=== PATIENT | male | born 1960 | race Caucasian/White ===

== ENCOUNTER → 2016-03-29 | Outpatient (REF) | payer BC ==
[2016-03-29 12:45] LABS: ALBUMIN 4.8 g/dL (3.4-5.0); TOTAL PROTEIN 8.1 g/dL (6.4-8.5)
== END ==
LOC: LAB 11:52
PROVIDERS: ATTEND Nurse Practitioner Family
DX: R79.89 Other specified abnormal findings of blood chemistry (principal)
CPT/HCPCS: 80076; 86803

== ENCOUNTER → 2016-04-04 | Outpatient (CLI) | payer BC | LOC: RAD 07:26 | PROVIDERS: ATTEND Nurse Practitioner Family | DX: R79.89 Other specified abnormal findings of blood chemistry (principal); K76.0 Fatty (change of) liver, not elsewhere classified | CPT/HCPCS: 76705 ==

== ENCOUNTER → 2016-04-09 | Outpatient (REF) | payer BC | LOC: LAB 17:17 | PROVIDERS: ATTEND Family Medicine | DX: E11.9 Type 2 diabetes mellitus without complications (principal) | CPT/HCPCS: 82565; 84520 ==

== ENCOUNTER → 2016-04-12 | Outpatient (CLI) | payer BC | LOC: RAD 07:45 | PROVIDERS: ATTEND Nurse Practitioner Family | DX: K76.89 Other specified diseases of liver (principal); K76.0 Fatty (change of) liver, not elsewhere classified; K42.9 Umbilical hernia without obstruction or gangrene | CPT/HCPCS: 74170; Q9967 ==

== ENCOUNTER → 2016-04-30 | Outpatient (REF) | payer BC ==
[2016-04-30 16:52] LABS: ALBUMIN 4.7 g/dL (3.4-5.0); TOTAL PROTEIN 7.6 g/dL (6.4-8.5)
[2016-04-30 23:49] LABS: HEPATITIS A ANTIBODY IGM Negative; HEPATITIS B CORE ABY IGM Negative; HEPATITIS B SURFACE ANTIGEN C Negative
== END ==
LOC: LAB 15:25
PROVIDERS: ATTEND Nurse Practitioner Family
DX: K76.0 Fatty (change of) liver, not elsewhere classified (principal)
CPT/HCPCS: 80074; 80076

== ENCOUNTER → 2016-05-17 | Outpatient (REF) | payer BC ==
[2016-05-17 16:57] LABS: BILIRUBIN,URINE Negative (Negative); CLARITY,URINE Clear; COLOR,URINE Yellow; GLUCOSE, URINE (UA) Negative (Negative); LEUKOCYTE ESTERASE, URINE Negative (Negative); UROBILINOGEN,URINE 0.2 mg/dL (0.2-1.0)
== END ==
LOC: LAB 15:58
PROVIDERS: ATTEND Nurse Practitioner Family
DX: E11.9 Type 2 diabetes mellitus without complications (principal)
CPT/HCPCS: 81003; 82043; 83036

== ENCOUNTER 2016-06-12 06:22 | Day surgery (SDC) | payer BC ==
[~2016-06-12] VITALS: Ht 165.1 cm; Wt 85.5 kg
[~2016-06-12 06:22] MED LIST: AML5T PO; ASPI-860 PO; LACTATED RINGERS 1,000 ML IV SCH; LSNP10T PO; METF500T4 PO; OMEG500C PO; SODIUM CHLORIDE FLUSH 3 ML SYR IV PRN
--- OUTSIDE RECORDS SUMMARY | 2016-06-12 06:27 | XMS REPORT | Continuity of Care Document ---
Author Author [facility] Address Unknown Phone Unavailable Allergies Medications Problems Date Dx Coded Attending Type Code Diagnosis Diagnosed By 05/28/2012 Ot 787.02 05/28/2014 Ot 571.8 05/28/2014 Ot 574.20 06/17/2014 WILGERS, LEONARDO L SHAFT HEADMAN Ot 272.4 06/17/2014 WILGERS, LEONARDO L SHAFT HEADMAN Ot 401.9 06/17/2014 WILGERS, LEONARDO L SHAFT HEADMAN Ot 790.29 09/14/2014 WILGERS, LEONARDO L SHAFT HEADMAN Ot 790.29 09/14/2014 WILGERS, LEONARDO L SHAFT HEADMAN Ot 790.4 09/14/2014 WILGERS, LEONARDO L SHAFT HEADMAN Ot 790.29 09/14/2014 WILGERS, LEONARDO L SHAFT HEADMAN Ot 790.4 09/23/2014 WILGERS, LEONARDO L SHAFT HEADMAN Ot 790.29 09/23/2014 WILGERS, LEONARDO L SHAFT HEADMAN Ot 790.4 09/27/2014 WILGERS, LEONARDO L SHAFT HEADMAN Ot 272.4 09/27/2014 WILGERS, LEONARDO L SHAFT HEADMAN Ot 401.9 09/27/2014 WILGERS, LEONARDO L SHAFT HEADMAN Ot 790.29 09/27/2014 WILGERS, LEONARDO L SHAFT HEADMAN Ot 790.29 09/27/2014 WILGERS, LEONARDO L SHAFT HEADMAN Ot 790.4 02/05/2016 WILGERS, LEONARDO L SHAFT HEADMAN Ot 272.4 HYPERLIPIDEMIA NEC/NOS 02/05/2016 WILGERS, LEONARDO L SHAFT HEADMAN Ot 401.9 HYPERTENSION NOS 02/05/2016 WILGERS, LEONARDO L SHAFT HEADMAN Ot 790.29 OTHER ABNORMAL GLUCOSE 02/05/2016 WILGERS, LEONARDO L SHAFT HEADMAN Ot 790.29 OTHER ABNORMAL GLUCOSE 02/05/2016 WILGERS, LEONARDO L SHAFT HEADMAN Ot 790.4 ELEV TRANSAMINASE/LDH 02/08/2016 RALPH BETH, ABIGAIL Ordonez Ot E78.2 MIXED HYPERLIPIDEMIA 02/08/2016 ABIGAIL ROSAS MD Ot I10 ESSENTIAL (PRIMARY) HYPERTENSION 02/08/2016 RALPH BETH, ABIGAIL Ordonez Ot R73.03 PREDIABETES 02/27/2016 RALPH BETH, ABIGAIL Ordonez Ot E78.2 MIXED HYPERLIPIDEMIA 02/27/2016 RALPH BETH, ABIGAIL Ordonez Ot I10 ESSENTIAL (PRIMARY) HYPERTENSION 02/27/2016 RALPH BETH, ABIGAIL Ordonez Ot R73.03 PREDIABETES 03/29/2016 WILGERS, LEONARDO L SHAFT HEADMAN Ot 272.4 HYPERLIPIDEMIA NEC/NOS 03/29/2016 WILGERS, LEONARDO L SHAFT HEADMAN Ot 401.9 HYPERTENSION NOS 03/29/2016 WILGERS, LEONARDO L SHAFT HEADMAN Ot 790.29 OTHER ABNORMAL GLUCOSE 03/29/2016 WILGERS, LEONARDO L SHAFT HEADMAN Ot 790.29 OTHER ABNORMAL GLUCOSE 03/29/2016 WILGERS, LEONARDO L SHAFT HEADMAN Ot 790.4 ELEV TRANSAMINASE/LDH 03/29/2016 RALPH BETH, ABIGAIL Ordonez Ot E78.2 MIXED HYPERLIPIDEMIA 03/29/2016 RALPH BETH, ABIGAIL Ordonez Ot I10 ESSENTIAL (PRIMARY) HYPERTENSION 03/29/2016 RALPH BETH, ABIGAIL Ordonez Ot R73.03 PREDIABETES 04/05/2016 WILGERS, LEONARDO L SHAFT HEADMAN Ot R79.89 OTHER SPECIFIED ABNORMAL FINDINGS OF BLO 04/08/2016 WILGERS, LEONARDO L SHAFT HEADMAN Ot K76.0 FATTY (CHANGE OF) LIVER, NOT ELSEWHERE C 04/08/2016 WILGERS, LEONARDO L SHAFT HEADMAN Ot R79.89 OTHER SPECIFIED ABNORMAL FINDINGS OF BLO 04/12/2016 WILGERS, LEONARDO L SHAFT HEADMAN Ot K76.0 FATTY (CHANGE OF) LIVER, NOT ELSEWHERE C 04/12/2016 WILGERS, LEONARDO L SHAFT HEADMAN Ot R79.89 OTHER SPECIFIED ABNORMAL FINDINGS OF BLO 04/16/2016 AYDEE KURTZ MD Ot E11.9 TYPE 2 DIABETES MELLITUS WITHOUT COMPLIC 04/18/2016 WILGERS, LEONARDO L SHAFT HEADMAN Ot R79.89 OTHER SPECIFIED ABNORMAL FINDINGS OF BLO 04/18/2016 WILGERS, LEONARDO L SHAFT HEADMAN Ot K76.0 FATTY (CHANGE OF) LIVER, NOT ELSEWHERE C 04/18/2016 WILGERS, LEONARDO L SHAFT HEADMAN Ot R79.89 OTHER SPECIFIED ABNORMAL FINDINGS OF BLO 04/19/2016 WILGERS, LEONARDO L SHAFT HEADMAN Ot K42.9 UMBILICAL HERNIA WITHOUT OBSTRUCTION OR 04/19/2016 WILGERS, LEONARDO L SHAFT HEADMAN Ot K76.0 FATTY (CHANGE OF) LIVER, NOT ELSEWHERE C 04/19/2016 WILGERS, LEONARDO L SHAFT HEADMAN Ot K76.89 OTHER SPECIFIED DISEASES OF LIVER 04/24/2016 AYDEE KURTZ MD Ot E11.9 TYPE 2 DIABETES MELLITUS WITHOUT COMPLIC 05/03/2016 WILBRIDGER L SHAFT HEADMAN Ot K42.9 UMBILICAL HERNIA WITHOUT OBSTRUCTION OR 05/03/2016 WILBRIDGER, L SHAFT HEADMAN Ot K76.0 FATTY (CHANGE OF) LIVER, NOT ELSEWHERE C 05/03/2016 WILGERS L SHAFT HEADMAN Ot K76.89 OTHER SPECIFIED DISEASES OF LIVER 05/15/2016 WILGERS, LEONARDO L SHAFT HEADMAN Ot K76.0 FATTY (CHANGE OF) LIVER, NOT ELSEWHERE C 05/21/2016 WILGERS, L SHAFT HEADMAN Ot 272.4 HYPERLIPIDEMIA NEC/NOS 05/21/2016 WILGERS, L SHAFT HEADMAN Ot 401.9 HYPERTENSION NOS 05/21/2016 WILBRIDGER, L SHAFT HEADMAN Ot 790.29 OTHER ABNORMAL GLUCOSE 05/21/2016 WILBRIDGER L SHAFT HEADMAN Ot 790.29 OTHER ABNORMAL GLUCOSE 05/21/2016 WILBRIDGER L SHAFT HEADMAN Ot 790.4 ELEV TRANSAMINASE/LDH 05/21/2016 RALPH BETH, ABIGAIL Ordonez Ot E78.2 MIXED HYPERLIPIDEMIA 05/21/2016 RALPH BETH, ABIGAIL Ordonez Ot I10 ESSENTIAL (PRIMARY) HYPERTENSION 05/21/2016 RALPH BETH, ABIGAIL Ordonez Ot R73.03 PREDIABETES 05/21/2016 WILBRIDGER, LEONARDO L SHAFT HEADMAN Ot R79.89 OTHER SPECIFIED ABNORMAL FINDINGS OF BLO 05/21/2016 WILBRIDGER LEONARDO L SHAFT HEADMAN Ot K76.0 FATTY (CHANGE OF) LIVER, NOT ELSEWHERE C 05/21/2016 WILGERS L SHAFT HEADMAN Ot R79.89 OTHER SPECIFIED ABNORMAL FINDINGS OF BLO 05/21/2016 WILGERS, LEONARDO L SHAFT HEADMAN Ot K42.9 UMBILICAL HERNIA WITHOUT OBSTRUCTION OR 05/21/2016 WILGERS, LEONARDO L SHAFT HEADMAN Ot K76.0 FATTY (CHANGE OF) LIVER, NOT ELSEWHERE C 05/21/2016 WILGERS, LEONARDO L SHAFT HEADMAN Ot K76.89 OTHER SPECIFIED DISEASES OF LIVER 05/21/2016 AYDEE KURTZ MD Ot E11.9 TYPE 2 DIABETES MELLITUS WITHOUT COMPLIC 05/21/2016 WILGERS LEONARDO L SHAFT HEADMAN Ot K76.0 FATTY (CHANGE OF) LIVER, NOT ELSEWHERE C 05/21/2016 WILGERS, LEONARDO L SHAFT HEADMAN Ot E11.9 TYPE 2 DIABETES MELLITUS WITHOUT COMPLIC 05/29/2016 LEONARDO RAMIREZ SHAFT HEADMAN Ot E11.9 TYPE 2 DIABETES MELLITUS WITHOUT COMPLIC Procedures Results Test Result Range Comprehensive metabolic panel - 02/01/16 16:15 Sodium measurement 96 70-110 Carbon dioxide measurement 26 22-29 Serum or plasma anion gap 16.7 3-15 BLOOD UREA NITROGEN 17 7-18 CREATININE SERUM 1.22 0.8-1.5 Brucella species antibody panel (IgG, IgM) 14 10-20 Estimated glomerular filtration rate (GFR) 74.6 Estimated glomerular filtration rate (GFR) non- 61.7 OSMOLALITY,CALCULATED 275 280-300 CALCIUM 10.1 8.8-10.8 Calculated ionized calcium measurement 4.4 3.8-4.6 BILIRUBIN,TOTAL 0.6 0.1-1.0 Serum or plasma alkaline phosphatase measurement 85 38-126 ASPARTATE AMINO TRANSFERASE 50 15-37 ALANINE AMINOTRANSFERASE 108 30-65 Serum or plasma total protein measurement 7.4 6.4-8.5 Serum or plasma albumin measurement 4.7 3.4-5.0 Serum or plasma albumin/globulin mass ratio 1.740 1.1-1.8 LIPID PANEL - 02/01/16 16:15 Cholesterol 235 50-200 HDL Cholesterol 57 40-60 Triglycerides 116 10-150 LDL CHOLESTEROL 155 50-130 VLDL Cholesterol, calc 23 4.00-40.00 Cholesterol.total/Cholesterol.in HDL 4.1 0.0-5.0 HEMOGLOBIN A1C* - 02/01/16 16:15 HEMOGLOBIN A1C* 6.7 4.0-6.0 LIVER PANEL - 03/29/16 11:40 BILIRUBIN,TOTAL 0.8 0.1-1.0 Serum or plasma alkaline phosphatase measurement 93 38-126 ASPARTATE AMINO TRANSFERASE 65 15-37 ALANINE AMINOTRANSFERASE 143 30-65 Serum or plasma conjugated bilirubin/total bilirubin 0.0 0.0-0.4 Serum or plasma total protein measurement 8.1 6.4-8.5 Serum or plasma albumin measurement 4.8 3.4-5.0 * Serum or plasma hepatitis C virus antibody signal/cutoff by immunoassay - 11:40 * Serum or plasma hepatitis C virus antibody signal/cutoff by immunoassay Negative Lactate dehydrogenase (LDH) measurement - 04/09/16 15:10 CREATININE SERUM 0.99 0.8-1.5 Estimated glomerular filtration rate (GFR) 94.6 Estimated glomerular filtration rate (GFR) non- 78.2 BLOOD UREA NITROGEN - 04/09/16 15:10 BLOOD UREA NITROGEN 13 7-18 LIVER PANEL - 04/30/16 15:15 BILIRUBIN,TOTAL 0.8 0.1-1.0 Serum or plasma alkaline phosphatase measurement 76 38-126 ASPARTATE AMINO TRANSFERASE 46 15-37 ALANINE AMINOTRANSFERASE 114 30-65 Serum or plasma conjugated bilirubin/total bilirubin 0.0 0.0-0.4 Serum or plasma total protein measurement 7.6 6.4-8.5 Serum or plasma albumin measurement 4.7 3.4-5.0 HEPATITIS PANEL - 04/30/16 15:15 Serum or plasma hepatitis A virus IgM antibody detection by immunoassay Negative Serum or plasma hepatitis B virus core IgM antibody detection by immunoassay Negative * Serum or plasma hepatitis C virus antibody signal/cutoff by immunoassay Negative HEMOGLOBIN A1C* - 05/17/16 15:45 HEMOGLOBIN A1C* 6.7 4.0-6.0 UA (urinalysis) - 05/17/16 15:50 COLLECTION METHOD CLEAN CATCH Color of urine by auto Yellow Urine appearance determination Clear Urine pH measurement by automated test strip 7.0 5.0 - 8.0 Specific gravity of urine by automated test strip 1.010 1.005-1.030 PROTEIN, URINE Negative Urine glucose detection by automated test strip Negative Negative Urine erythrocytes count by automated test strip (number/volume) Negative Negative Urine ketones detection by automated test strip Negative Negative NITRITE,URINE Negative Negative Urine total bilirubin detection by automated test strip Negative Negative Urine urobilinogen measurement by automated test strip (mass/volume) 0.2 0.2-1.0 Urine leukocyte esterase detection by dipstick Negative Negative Urine microalbumin measurement by detection limit <=20 mg/l (mass/volume) - 15:50 Urine microalbumin measurement by detection limit <=20 mg/l (mass/volume) < 0.0-1.7 Encounters ACCT No. Visit Date/Time Discharge Status Pt. Type Provider Facility Loc./Unit Complaint [id number] 08/31/2014 15:09:00 2014 23:59:59 CLS Outpatient LEONARDO RAMIREZ [facility] LAB [id number] 06/07/2014 10:13:00 2014 10:13:00 LUCIANO ROSAS MD, [facility] RT [id number] 05/28/2014 08:01:00 2014 23:59:59 CLS Outpatient [facility] LAB [id number] 05/17/2016 15:58:00 ACT Outpatient [facility] LAB LAB DROP OFF [facility] [id number] 04/30/2016 15:25:00 ACT Outpatient [facility] LAB LAB DROP OFF BY DR OFFICE [id number] 04/12/2016 07:45:00 ACT Outpatient [facility] RAD LIVER LESIONS [id number] 04/09/2016 17:17:00 ACT Outpatient TESSIE BETH, [facility] LAB LAB DROP OFF [id number] 04/04/2016 07:26:00 ACT Outpatient [facility] RAD ELEVATED LFT'S R79.89 [id number] 03/29/2016 11:52:00 ACT Outpatient [facility] LAB [id number] 02/01/2016 16:39:00 ACT Outpatient RALPH BETH, [facility] LAB DROP OFF PER RALPH [id number] 05/28/2012 10:19:00 Document Registration [id number] 05/22/2012 07:51:00 Document Registration
[2016-06-12 06:28] VITALS: BP 124/79
[2016-06-12] MEDS ORDERED: PROPOFOL 20 ML IV ONE (07:09)
[2016-06-12] MEDS ORDERED: ALFENTANIL 500 MCG/ML (ALFENTA) 5 ML AMP IV ONE (07:09)
[2016-06-12] MEDS ORDERED: MIDAZOLAM 2 MG/2 ML (VERSED) VIAL ONE (07:09)
[2016-06-12 07:56] VITALS: BP 120/70
[2016-06-12 10:33] VITALS: BP 140/87
--- NOTE | 2016-06-12 12:38 | OPERATIVE REPORT ---
DATE OF OPERATION: 06/12/2016 PRE-OPERATIVE DIAGNOSIS: Screening colonoscopy POST-OPERATIVE DIAGNOSIS: Normal colonoscopy OPERATIVE PROCEDURE: Total colonoscopy SURGEON: Trent Youngblood MD ANESTHESIA: Monitored anesthesia care FINDINGS: 1. The bowel prep was excellent. 2. No neoplasia, angiodysplasia, diverticula, or inflammation were seen. INDICATION: The patient is a 56-year-old referred by Brtiany Otoole APRN and Dr. Ng for colonoscopy screening. His family history is negative for colorectal cancer. DESCRIPTION OF PROCEDURE: The patient was informed of the risks and benefits and agreed to proceed. He was placed in the left lateral decubitus position and administered IV sedation. When properly sedated a rectal exam was performed, which was normal. The lighted endoscope was passed into the rectum and advanced along the colon to the cecum. The ileocecal valve and the appendiceal orifice were easily seen. The scope was slowly brought back through the ascending, transverse, descending, and sigmoid colon. No polyps or neoplasia were noted. The rectum appeared normal on regular view and retroflexion. The scope was removed completing the procedure. The patient tolerated the procedure without complications. With this normal colonoscopy, I recommend a repeat colonoscopy in 10 years.
== END 2016-06-12 10:54 | disposition home or self-care (01) ==
LOC: ASC 06:22
PROVIDERS: ATTEND Surgery
DX: Z12.11 Encounter for screening for malignant neoplasm of colon (principal); I10 Essential (primary) hypertension; E11.9 Type 2 diabetes mellitus without complications; Z79.84 Long term (current) use of oral hypoglycemic drugs
CPT/HCPCS: 45378; J2250; J7120